=== PATIENT | male | born 1960 | race Caucasian/White ===

== ENCOUNTER 2024-11-24 03:55 | Emergency (ER) | payer OTHER ==
[~2024-11-24] VITALS: Ht 167.6 cm; Wt 68.0 kg
[2024-11-24 04:03] VITALS: O2SAT 100
[2024-11-24 04:44] LABS: BASOPHILS % 0.9 % (0.0-2.0); EOSINOPHILS % 0.3 % (0.0-5.0); HEMATOCRIT. 42.7 % (42.0-52.0); HEMOGLOBIN. 13.7 g/dL (14.0-18.0); LYMPHOCYTES % 25.3 % (20.0-50.0); MEAN PLATELET VOLUME 7.9 fl (7.4-10.4); MONOCYTES % 8.9 % (2.0-8.0); NEUTROPHILS % 64.6 % (40.0-76.0); PLATELET 453 x1000/uL (130-400); RED BLOOD CELL COUNT 4.87 mill/uL (4.7-6.1); RED CELL DISTRIBUTION WIDTH 15.8 % (11.6-14.6)
[2024-11-24 04:55] LABS: INR 1.4
[2024-11-24 05:01] LABS: CREATININE 1.4 mg/dL (0.6-1.3)
[2024-11-24 05:02] LABS: TROPONIN I HIGH SENSITIVITY 15 ng/L (3.0-53); UREA NITROGEN BLOOD 24 mg/dL (9-23)
[2024-11-24 05:03] LABS: ASPARTATE AMINOTRANSFERASE 109 IU/L (<34)
[2024-11-24 05:04] LABS: BILIRUBIN DIRECT 0.4 mg/dL (<=3.0); BILIRUBIN TOTAL 1.2 mg/dL (0.1-1.0); PROTEIN TOTAL 7.0 g/dL (6.0-8.3)
[2024-11-24] MEDS: SODIUM CHLORIDE 0.9% 250 ML IV ONE (05:09)
[2024-11-24] MEDS: ONDANSETRON HCL 4MG/2ML INJ IV ONE (05:09)
[2024-11-24] MEDS: MORPHINE SULFATE 4 MG/ML INJ (FOR IV/IM USE) IV ONE (05:10)
[2024-11-24] MEDS: ASPIRIN 325MG EC TABLET PO ONE (05:57)
[2024-11-24] MEDS: FUROSEMIDE 20MG/2ML VIAL IVP ONE (05:57)
[2024-11-24 06:20] VITALS: BP 105/68; PULSE 70; RESP 14; TEMP 36.7; O2SAT 98
[2024-11-24] MEDS ORDERED: IOHEXOL-300 100 ML BOTTLE ONE (06:54)
== END 2024-11-24 06:48 | disposition short-term general hospital (02) ==
LOC: ER 03:55 → CMPBEDREQ 08:52
DX: R07.9 Chest pain, unspecified (principal); E11.9 Type 2 diabetes mellitus without complications; E78.00 Pure hypercholesterolemia, unspecified
CPT/HCPCS: 80076; 80048; 80320; 82962; 83880; 83690; 85025; 85610; 85730; 86850; 86900; 86901; 84484; 36415; 71045; 74177; 93005; 96361; 96374; 96375; 99285; Q9967; J1938; J2405; J2270; J7050; Z7610 ×2; G0480